=== PATIENT | male | born 1950 | race Caucasian/White ===

== ENCOUNTER 2016-06-29 11:23 | Observation (INO) | payer OTHER ==
[2016-06-29] MEDS ORDERED: NS 0.9% 1000 ML* 1,000 ML IV ONE (11:25)
[2016-06-29] MEDS ORDERED: Diltiazem TAB* 30 MG PO ONE (11:44)
[2016-06-29 11:48] LABS: Hematocrit 47 % (42-52); Hemoglobin 15.3 g/dl (14.0-18.0); Mean Corpuscular HGB Conc 33 g/dl (31-36); Mean Corpuscular Hemoglobin 29 pg (27-31); Mean Corpuscular Volume 89 fL (80-94); Mean Platelet Volume 10 um3 (7.4-10.4); Red Blood Count 5.24 10^6/ul (4.0-5.4); Red Cell Distribution Width 14 % (10.5-15); White Blood Count 6.4 10^3/ul (3.5-10.8)
--- NOTE | 2016-06-29 11:54 | RAD ---
HISTORY: Chest pain, tachycardia COMPARISONS: January 28, 2016 VIEWS:1: Single frontal portable view of the chest at 11:40 AM FINDINGS: LINES AND TUBES: None. CARDIOMEDIASTINAL SILHOUETTE: The cardiomediastinal silhouette is normal for portable technique. PLEURA: The costophrenic angles are sharp. No pleural abnormalities are noted. LUNG PARENCHYMA: The lungs are clear. ABDOMEN: The upper abdomen is clear. There is no subphrenic gas. BONES AND SOFT TISSUES: No bone or soft tissue abnormalities are noted. Spinal stimulator leads are noted. IMPRESSION: NO ACTIVE CARDIOPULMONARY DISEASE.
[2016-06-29 12:12] LABS: Albumin 4.1 g/dL (3.2-5.2); BUN/Creatinine Ratio 10.5 (8-20); C Reactive Protein 1.08 mg/L (< 5.00); Calcium 9.3 mg/dL (8.6-10.3); EGFR African American 82.7 (>60); EGFR Non-African American 64.3 (>60); Globulin 2.7 g/dL (2-4); Magnesium 1.4 mg/dL (1.9-2.7); Potassium 3.7 mmol/L (3.5-5.0); Total Bilirubin 0.6 mg/dL (0.2-1.0); Total Protein 6.8 g/dL (6.4-8.9)
[2016-06-29 12:13] LABS: Troponin I 0.01 ng/mL (<0.04)
[2016-06-29 12:25] LABS: TSH (Thyroid Stimulating Horm) 3.45 mcIU/mL (0.34-5.60)
[2016-06-29] MEDS ORDERED: Magnesium Sulfate IV* 3 GM in NS 0.9% 100 ML* 100 ML IVPB ONE (12:31)
[2016-06-29] MEDS ORDERED: Dextrose 50% Syringe 50 ML* 25 GM/50 ML SYRINGE IV PUSH PRN (13:04)
[2016-06-29] MEDS ORDERED: Potassium Chlor TAB* 20 MEQ TAB.ER PO ONE (13:04)
[2016-06-29] MEDS ORDERED: Acetaminophen TAB* 325 MG PO PRN (13:04)
[2016-06-29 13:27] LABS: Urine Bacteria Absent (Absent); Urine Bilirubin Negative (Negative); Urine Glucose Negative (Negative); Urine Nitrite Negative (Negative)
--- NOTE | 2016-06-29 13:43 | ED ---
Keny Zhu Karl, scribed for Raymond Negrete MD on 06/29/16 at 1129 . HPI Cardiac - HPI Summary HPI Summary: Pt is a 65 y/o male BIBA that presents to the ED c/o SOB, CP, and right arm pain. Pt reported that he was [facility] and SOB when they found that he was in SVT after an EKG. Pt's doctors at the [facility] referred him to the ED. - History of Current Complaint Chief Complaint: EDDysrhythmPalp Stated Complaint: CHEST PAIN Time Seen by Provider: 06/29/16 11:24 Hx Obtained From: Patient Onset/Duration: Started Hours Ago, Atraumatic, Still Present Timing: Constant Initial Severity: Mild Current Severity: Mild Chest Pain Location: Right Anterior Chest Pain Radiates To:: Arm - right - Allergy/Home Medications Allergies/Adverse Reactions: Allergies Allergy/AdvReac Type Severity Reaction Status Date / Time No Known Allergies Allergy Verified 02/10/16 11:39 Home Medications: Home Medications Cetirizine* [ZyrTEC*] 10 mg PO DAILY PRN 06/29/16 [History Confirmed 06/29/16] Fluticasone NASAL SPRAY 50MCG* [Flonase NASAL SPRAY 50MCG*] 1 spray BOTH NARES BID 06/29/16 [History Confirmed 06/29/16] Gabapentin CAP(*) [Neurontin 300 CAP(*)] 300 mg PO QAM 06/29/16 [History Confirmed 06/29/16] Gabapentin CAP(*) [Neurontin 300 CAP(*)] 600 mg PO QPM 06/29/16 [History Confirmed 06/29/16] Levothyroxine TAB* [Synthroid TAB*] 100 mcg PO QAM 06/29/16 [History Confirmed 06/29/16] Nortriptyline CAP* [Pamelor CAP*] 20 mg PO QPM 06/29/16 [History Confirmed 06/29] Rosuvastatin (NF) [Crestor (NF)] 40 mg PO DAILY 06/29/16 [History Confirmed 11/08] PMH/Surg Hx/FS Hx/Imm Hx Endocrine/Hematology History: Reports: Hx Diabetes Cardiovascular History: Reports: Hx Hypercholesterolemia, Hx Rheumatic Fever - A CHILD Denies: Hx Hypertension Respiratory History: Denies: Hx Asthma GI History: Reports: Hx Gastroesophageal Reflux Disease - ON MEDS, Hx Irritable Bowel - MANY YEARS AGO Denies: Other GI Disorders History: Denies: Other Problems/Disorders Musculoskeletal History: Reports: Hx Arthritis, Hx Back Problems, Hx Tendonitis - ARMS AND HANDS, Other Musculoskeletal History - Has dorsal column stimulator Sensory History: Reports: Hx Contacts or Glasses - to read only, Hx Hearing Aid Denies: Hx Cataracts Opthamlomology History: Reports: Hx Contacts or Glasses - to read only Denies: Hx Cataracts Neurological History: Denies: Other Neuro Impairments/Disorders - Cancer History Hx Chemotherapy: No - Surgical History Surgery Procedure, Year, and Place: Laminectomy 1990 [facility]. Spinal Fusion 1993 [facility] Lumbar Spine. SPinal Fusion 1996 [place], [place] Cervical Spine. Dorsal Column Stimulator inserted March 2013. Dorsal Column Stimulator removed April 2013. 2nd dorsal column stimulator inserted 2013 Hx Anesthesia Reactions: No Infectious Disease History: Denies: Hx Clostridium Difficile, Hx Hepatitis, Hx Human Immunodeficiency Virus (HIV), Hx of Known/Suspected MRSA, Hx Shingles, Hx Tuberculosis, Hx Known/ Suspected VRE - Family History Known Family History: Positive: Other - No malignant hyperthermia or anesthesia reaction - Social History Alcohol Use: None Substance Use Type: Reports: None Substance Use Comment - Amount & Last Used: Tramadol Smoking Status (MU): Former Smoker Type: Cigarettes Amount Used/How Often: 2PPD 10 YRS Have You Smoked in the Last Year: No Review of Systems Constitutional: Negative Eyes: Negative ENT: Negative Positive: Palpitations - SVT, Chest Pain Positive: Shortness Of Breath Gastrointestinal: Negative Genitourinary: Negative Musculoskeletal: Other - right arm pain Skin: Negative Neurological: Negative Psychological: Normal All Other Systems Reviewed And Are Negative: Yes Physical Exam Triage Information Reviewed: Yes Vital Signs On Initial Exam: Initial Vital Signs Temp 97.4 F 06/29/16 11:25 Pulse 109 06/29/16 11:25 Resp 25 06/29/16 11:25 BP 140/89 06/29/16 11:25 Pulse Ox 98 06/29/16 11:25 Vital Signs Reviewed: Yes Appearance: Positive: Well-Appearing, No Pain Distress Skin: Positive: Warm, Skin Color Reflects Adequate Perfusion, Dry Head/Face: Positive: Normal Head/Face Inspection Eyes: Positive: EOMI, DANIELA ENT: Positive: Normal ENT inspection Neck: Positive: Supple, Nontender Respiratory/Lung Sounds: Positive: Clear to Auscultation, Breath Sounds Present Cardiovascular: Positive: Tachycardia Abdomen Description: Positive: Nontender, Soft Bowel Sounds: Positive: Present Musculoskeletal: Positive: Normal, Strength/ROM Intact Neurological: Positive: Normal, Sensory/Motor Intact, Alert, Oriented to Person Place, Time Psychiatric: Positive: Affect/Mood Appropriate Diagnostics - Vital Signs Vital Signs Temp Pulse Resp BP Pulse Ox 06/29/16 12:30 112 18 101/70 97 06/29/16 12:01 112 19 97 06/29/16 12:00 107/68 06/29/16 11:55 115 22 97 06/29/16 11:30 112 21 120/78 99 06/29/16 11:28 111 24 99 06/29/16 11:27 124/82 06/29/16 11:25 97.4 F 109 25 140/89 98 - Laboratory Lab Results: Lab Results 06/29/16 06/29/16 06/29/16 Range/Units 11:25 11:25 11:25 WBC 6.4 (3.5-10.8) 10^3/ul RBC 5.24 (4.0-5.4) 10^6/ul Hgb 15.3 (14.0-18.0) g/dl Hct 47 (42-52) % MCV 89 (80-94) fL MCH 29 (27-31) pg MCHC 33 (31-36) g/dl RDW 14 (10.5-15) % Plt Count 178 (150-450) 10^3/ul MPV 10 (7.4-10.4) um3 Neut % (Auto) 76.6 (38-83) % Lymph % (Auto) 12.9 L (25-47) % [place] % (Auto) 6.5 (1-9) % Eos % (Auto) 3.3 (0-6) % Baso % (Auto) 0.7 (0-2) % Absolute Neuts (auto) 4.9 (1.5-7.7) 10^3/ul Absolute Lymphs (auto) 0.8 L (1.0-4.8) 10^3/ul Absolute Monos (auto) 0.4 (0-0.8) 10^3/ul Absolute Eos (auto) 0.2 (0-0.6) 10^3/ul Absolute Basos (auto) 0 (0-0.2) 10^3/ul Absolute Nucleated RBC 0 10^3/ul Nucleated RBC % 0.1 INR (Anticoag Therapy) 0.93 (0.89-1.11) APTT 27.5 (26.0-36.3) seconds D-Dimer, Quantitative < 200 (Less Than 230) ng/mL Sodium 133 (133-145) mmol/L Potassium 3.7 (3.5-5.0) mmol/L Chloride 101 (101-111) mmol/L Carbon Dioxide 23 (22-32) mmol/L Anion Gap 9 (2-11) mmol/L BUN 12 (6-24) mg/dL Creatinine 1.14 (0.67-1.17) mg/dL Est GFR ( Amer) 82.7 (>60) Est GFR (Non-Af Amer) 64.3 (>60) BUN/Creatinine Ratio 10.5 (8-20) Glucose 206 H (70-100) mg/dL Lactic Acid (0.5-2.0) mmol/L Calcium 9.3 (8.6-10.3) mg/dL Magnesium 1.4 L (1.9-2.7) mg/dL Total Bilirubin 0.60 (0.2-1.0) mg/dL AST 29 (13-39) U/L ALT 40 (7-52) U/L Alkaline Phosphatase 70 (34-104) U/L Total Creatine Kinase 197 (10-223) U/L CK-MB (CK-2) 4.1 (0.6-6.3) ng/mL Troponin I 0.01 (<0.04) ng/mL C-Reactive Protein 1.08 (< 5.00) mg/L B-Natriuretic Peptide ( - 100) pg/mL Total Protein 6.8 (6.4-8.9) g/dL Albumin 4.1 (3.2-5.2) g/dL Globulin 2.7 (2-4) g/dL Albumin/Globulin Ratio 1.5 (1-3) Lipase 29 (11.0-82.0) U/L TSH 3.45 (0.34-5.60) mcIU/mL 06/29/16 06/29/16 Range/Units 11:25 11:25 WBC (3.5-10.8) 10^3/ul RBC (4.0-5.4) 10^6/ul Hgb (14.0-18.0) g/dl Hct (42-52) % MCV (80-94) fL MCH (27-31) pg MCHC (31-36) g/dl RDW (10.5-15) % Plt Count (150-450) 10^3/ul MPV (7.4-10.4) um3 Neut % (Auto) (38-83) % Lymph % (Auto) (25-47) % [place] % (Auto) (1-9) % Eos % (Auto) (0-6) % Baso % (Auto) (0-2) % Absolute Neuts (auto) (1.5-7.7) 10^3/ul Absolute Lymphs (auto) (1.0-4.8) 10^3/ul Absolute Monos (auto) (0-0.8) 10^3/ul Absolute Eos (auto) (0-0.6) 10^3/ul Absolute Basos (auto) (0-0.2) 10^3/ul Absolute Nucleated RBC 10^3/ul Nucleated RBC % INR (Anticoag Therapy) (0.89-1.11) APTT (26.0-36.3) seconds D-Dimer, Quantitative (Less Than 230) ng/mL Sodium (133-145) mmol/L Potassium (3.5-5.0) mmol/L Chloride (101-111) mmol/L Carbon Dioxide (22-32) mmol/L Anion Gap (2-11) mmol/L BUN (6-24) mg/dL Creatinine (0.67-1.17) mg/dL Est GFR ( Amer) (>60) Est GFR (Non-Af Amer) (>60) BUN/Creatinine Ratio (8-20) Glucose (70-100) mg/dL Lactic Acid 1.9 (0.5-2.0) mmol/L Calcium (8.6-10.3) mg/dL Magnesium (1.9-2.7) mg/dL Total Bilirubin (0.2-1.0) mg/dL AST (13-39) U/L ALT (7-52) U/L Alkaline Phosphatase (34-104) U/L Total Creatine Kinase (10-223) U/L CK-MB (CK-2) (0.6-6.3) ng/mL Troponin I (<0.04) ng/mL C-Reactive Protein (< 5.00) mg/L B-Natriuretic Peptide 13 ( - 100) pg/mL Total Protein (6.4-8.9) g/dL Albumin (3.2-5.2) g/dL Globulin (2-4) g/dL Albumin/Globulin Ratio (1-3) Lipase (11.0-82.0) U/L TSH (0.34-5.60) mcIU/mL Result Diagrams: 06/29/16 11:25 06/29/16 11:25 Lab Statement: Any lab studies that have been ordered have been reviewed, and results considered in the medical decision making process. - Radiology CXR Xray Interpretation: No Acute Changes Radiology Interpretation Completed By: Radiologist - IMPRESSION: NO ACTIVE CARDIOPULMONARY DISEASE. - EKG 11:17 Cardiac Rate: Tachycardia EKG Rhythm: Sinus Tachycardia Ectopy: None EKG Interpretation: Non-specific T-wave abnormalities in inferior leads Disposition - Course Assessment/Plan: DISCUSSED WITH DR RUBIO. ADMIT HOSPITALIST STABLE. - Diagnoses Provider Diagnoses: SVT,CHEST PAIN - Physician Notifications Discussed Care Of Patient With: Dr. Rubio (Cardiology) at 11:27. Dr. Lemons (Hospitalist) at 11:30 Discharge - Discharge Plan Condition: Stable Disposition: ADMITTED TO [facility] documentation as recorded by the Keny germain Karl accurately reflects the service I personally performed and the decisions made by me, Raymond Negrete MD.
[2016-06-29] MEDS ORDERED: Heparin VIAL(*) 5000 UNITS/ML VIAL (FIVE THOUSAND) SUBCUT SCH (14:00)
[2016-06-29] MEDS: Magnesium Oxide TAB* 400 MG PO SCH (14:29)
[2016-06-29] MEDS: Insulin LISPRO* 1 UNITS UNIT SUBCUT SCH (17:04)
--- NOTE | 2016-06-29 17:21 | ECHO ---
Patient: LEXI FIGUEROA [facility] Rec#: [id number] : 1950 Date: 06/29/2016 Age: 65y Height: 175 cm / 68.9 in Weight: 124 kg / 273.3 lbs Sex: M BSA: 2.36 Room#: 431 Admit Date#: 06/29/2016 Type: Inpatient Referring: Giovanni Griffin NP Reading: Brooks Miguel MD Agile Developer: Anson Gutierrez RDCS Transthoracic Echocardiogram Indication: SVT, Chest pain BP: 112/68 HR: 79 Rhythm: NSR Findings History: DM, rheumatic fever Technical Comments: The study quality is fair. The study is technically limited due to patient body habitus. Left Ventricle: The left ventricular chamber size is normal. Mild concentric left ventricular hypertrophy is observed. Global left ventricular wall motion and contractility are within normal limits. There is normal left ventricular systolic function. The estimated ejection fraction is 50-55%. Visually estimated LVEF is 55%. Abnormal left ventricular diastolic filling is observed, consistent with impaired relaxation. Left Atrium: The left atrial chamber size is normal. Right Ventricle: The right ventricular cavity size is normal. The right ventricular global systolic function is normal. Right Atrium: The right atrial cavity size is normal. Aortic Valve: The aortic valve is trileaflet. Mild aortic leaflet calcification is visualized. There is no evidence of aortic regurgitation. There is mild aortic stenosis. Mitral Valve: There is mitral annular calcification. There is no evidence of mitral regurgitation. There is no evidence of mitral stenosis. Tricuspid Valve: The tricuspid valve appears normal in structure and function. Pulmonic Valve: The pulmonic valve appears normal. There is no evidence of pulmonic regurgitation. There is no pulmonic stenosis. Pericardium: There is no pericardial effusion. A pericardial fat pad is visualized. No pleural effusion is present. Aorta: There is no dilatation of the ascending aorta. There is no dilatation of the aortic arch. There is no dilation of the aortic root. Pulmonary Artery: The main pulmonary artery is not well visualized. Venous: The inferior vena cava appears normal in size. There is a greater than 50% respiratory change in the inferior vena cava dimension. Conclusions Mild concentric left ventricular hypertrophy is observed. The estimated ejection fraction is 50-55%. Visually estimated LVEF is 55%. Global left ventricular wall motion and contractility are within normal limits. There is mild aortic stenosis. No reports of prior studies offered for comparison. Measurements Name Value Normal Range RVIDd (AP) 2D 2.1 cm (0.9 - 2.6) RVDdMajor (2D) 3.7 cm (2.2 - 4.4) RAd ISD 4CH 5.2 cm (3.4 - 4.9) RA (A4C)W 4.3 cm (2.9 - 4.6) IVSd (2D) 1.3 cm (0.6 - 1) LVPWd (2D) 1.6 cm (0.6 - 1) LVIDd (2D) 4.5 cm (3.6 - 5.4) LVIDs (2D) 3.9 cm - Aortic Annulus 2.2 cm (1.4 - 2.6) Ao root diameter (2D) 3.3 cm (2.1 - 3.5) Ascending Ao 3.7 cm (2.1 - 3.4) Aortic arch 3.5 cm (1.8 - 3.4) LA dimension (AP) 2D 4 cm (2.3 - 3.8) LAd ISD 4CH 6.5 cm (2.9 - 5.3) LA ISD 4CH W 4.4 cm (2.5 - 4.5) Name Value Normal Range LA ESV SP 4CH (A/L) 41 ml - LA ESV SP 2CH (A/L) 41 ml - LA ESV BP (A/L) 45 ml - LA ESV BP (A/L) index 19.28 ml/m2 - LA ESV SP 4CH (MOD) 36 ml - LA ESV SP 2CH (MOD) 39 ml - Name Value Normal Range MV E-wave Vmax 0.52 m/sec - MV deceleration time 234 msec - MV A-wave Vmax 0.76 m/sec - MV E:A ratio 0.68 ratio - LV septal e' Vmax 0.05 m/sec - LV lateral e' Vmax 0.07 m/sec - LV E:e' septal ratio 10.4 ratio - LV E:e' lateral ratio 7.43 ratio - Name Value Normal Range AV Vmax 1.9 m/sec - LVOT Vmax 0.8 m/sec - Name Value Normal Range IVC diameter 1 cm - Name Value Normal Range PV Vmax 0.6 m/sec -
[2016-06-29] MEDS: Enoxaparin(*) 150 MG/ML 1 ML SYRINGE SUBCUT SCH (17:28)
[2016-06-29] MEDS: Diltiazem TAB* 30 MG PO SCH ×2 (17:33→17:36)
[2016-06-29] MEDS ORDERED: Baclofen TAB* 20 MG PO SCH (18:00)
[2016-06-29] MEDS ORDERED: Gabapentin CAP(*) 300 MG PO SCH (18:00)
[2016-06-29] MEDS: Fluticasone NASAL SPRAY 50MCG* 16 gm SPRAY BTL BOTH NARES SCH (20:27)
--- NOTE | 2016-06-29 20:54 | HP ---
HISTORY AND PHYSICAL: ADDENDUM: Mr. Britt is a 65-year-old male with a history of chronic pain and hypertension, who pr esented to the hospital with SVT with a heart rate close to 200 systolically. He received one dose of adenosine in the ambulance that was not successful, but [facility] the patient's SVT. Currently, he is in sinus tachycard ia. His magnesium was noted to be 1.4. The patient also complained of chest pain and he is going to be admitted to the hospital for the above-mentioned. For further details of the patient's presenta tion and plan, please see history and physical dictated by Giovanni Griffin NP, on 06/29/16 with which I agree. [id number]/[facility] #: [id number]
[2016-06-29] MEDS ORDERED: Nortriptyline CAP* 10 MG PO SCH (21:00)
--- NOTE | 2016-06-29 21:11 | HP ---
HISTORY AND PHYSICAL: DATE OF ADMISSION: 06/29/16 PRIMARY CARE PROVIDER: Danielle Stanley NP ATTENDING PHYSICIAN: Dr. Vero Linder* (report being dictated by Giovanni Griffin NP) CHIEF COMPLAINT: 1. Chest pain. 2. SVTs. HISTORY OF PRESENT ILLNESS: Mr. Britt is a 65-year-old male patient who has a history of smoking when he was 29 years old, has a history of hypertension, BPH, diabetes, chronic back pain, hyperlipidemia, hypothyroidism, and GERD. He comes in today stating that around 9 o'clock today after getting out of shower and exerting himself. He had some chest pressure across the front of his chest that radiated down to the right arm. He did have some associated diaphoresis and he felt winded and he felt nauseated. The symptoms persisted. He states few weeks ago, he had similar symptoms, lasted 30 minutes, and then they went away. He states he thinks they happened with exertion as well few weeks ago. He does state that the patient states that he had an appointment with his primary today already scheduled for lab work, so he decided to go there. When he was in the office there, the symptoms were getting worse. He was having palpitations. He felt like his heart was racing. He told his staff there. They immediately attended to him. He got an EKG, which shows he appeared to be in SVT with a rate of 207. Similar episodes in the past, but never had any etiology or pathology found. He said he had a workup with a postal mail carrier 3 years ago and said everything according to the patient looked fine. He denies having any recent cough, fever, or chills. No recent change in medications. Denies having any nausea. Denies having any vomiting. He denies having any abdominal discomfort. He does state that the symptoms just were not getting better and with a new finding of SVT, 911 was called and he was sent in to the hospital. Because of his risk factors, we were asked to evaluate. He was given adenosine and he did break to a sinus tachycardia with a rate of 110. PHYSICAL EXAMINATION GENERAL: Mr. Britt is a 65-year-old male patient, appears well-nourished, well- developed, he does not appear in any acute distress. HEENT: Head atraumatic, normocephalic. Eyes: EOMs intact. Sclerae anicteric and not pale. Throat: Oral mucosa appears to be moist. No oropharyngeal erythema. NECK: Supple. LUNGS: Clear to auscultation bilaterally. No wheezes, rales, or rhonchi. HEART: Sounds S1, S2. He is tachycardic with a rate of 110. No murmurs, rubs , or gallops. ABDOMEN: Soft, flat, nontender. Bowel sounds present. EXTREMITIES: Pulses 2+ throughout. He is able to move all 4 extremities with 5 /5 strength. SKIN: Grossly intact. NEUROLOGIC: The patient is awake, alert, and oriented x3. Tongue midline. [place] [employer] were equal. No gross focal deficits. LABORATORY DATA: Labs today revealed a WBC of 6.4, RBC of 5.24, hemoglobin 15.3, hematocrit of 47, platelet count of 178. The INR was 0.93, PTT of 27.5, D -dimer less than 200. Sodium 133, potassium 3.7, chloride 101, bicarb 23, BUN 12, creatinine 1.14, glucose 216, lactic 1.9, calcium 9.3, mag 1.4, total bili 0.6, AST 29, ALT 40, alk phos 70, CK 197, CK-MB 4.1, troponin 0.01, CRP 1.08, BNP 13, TSH 3.45, lipase of 29. He did have a chest x-ray obtained today as well, which revealed no active cardiopulmonary disease. Again, EKG done at Danielle Valderramarich's office, which showed a SVT, rate of [address] depression. He had a repeat EKG here in the hospital, which did show a sinus tachycardia with a rate of [address] elevations or T-wave inversions were noted at this point. Old medical records were reviewed. ASSESSMENT AND PLAN: Mr. Britt is a 65-year-old male patient coming into the ER today with complaints of chest pressure with associated shortness of breath and nausea and diaphoresis in evaluation as his primary noted in supraventricular tachycardia, it broke, his symptoms have resolved. He will be admitted under outpatient status: 1. Supraventricular tachycardia. Again, etiology is unclear. His mag is low. We are going to get that up to 2. His K was 3.7. We will get that up to 4. We will repeat the mag in the morning. We will get an echo and a stress test, placed him on telemetry. We will start him on diltiazem. If the patient's LV function is stable, we could certainly continue with the diltiazem long-term, but may also want to consider beta-pankaj if there is any chance of coronary artery disease. For the time being, we will stick with the diltiazem and may consider switching him to metoprolol. The risk of the metoprolol may mask hypoglycemic event, so I did touch base with the postal mail carrier and they recommended going ahead and continue with the diltiazem for now and then determining if we should switch him over to a beta-pankaj for the time being, we will follow. 2. Chest pain. His rate is better controlled now. He is not having any more symptoms. We will continue the aspirin for now. We will get a stress test, cycle his troponins, place him on telemetry and continue to follow. I am getting an echo. If there is any abnormal findings on the lab test, diagnostic test, we will get Cardiology consult. 3. Hypertension. Continue meds as prescribed. 4. Diabetes. He will be on lispro sliding scale. 5. Benign prostatic hypertrophy. Continue Flomax. 6. Hyperlipidemia. Check a lipid panel in the morning. Continue meds as prescribed. 7. Hypothyroidism. Continue Synthroid. 8. Gastroesophageal reflux disease. Continue PPI therapy. 9. Chronic back pain. Continue meds as prescribed. 10. DVT prophylaxis. He has high risk. He will be placed on heparin subcu. 11. Code status. He is a full code. 12. Fluid, electrolyte, nutrition. He can have a heart healthy diet, then he will be n.p.o. after midnight for the test in the morning. TIME SPENT: Time spent on the admission was approximately 60 minutes, greater than half the time was spent [id number] with the patient obtaining my history and physical; other half the time was spent going over the plan of care with the patient and implementing the plan of care. I did discuss the plan of care with my attending; Dr. Linder; she is in agreement. GIOVANNI GRIFFIN NP ADDENDUM TO HISTORY AND PHYSICAL: ADDENDUM: Mr. Britt is a 65-year-old male with a history of chronic pain and hypertension, who presented to the hospital with SVT with a heart rate close to 200 systolically. He received one dose of adenosine in the ambulance that was not successful, but the dose of 12 mg of adenosine in the emergency department was successful in breaking the patient's SVT. Currently, he is in sinus tachycardia. His magnesium was noted to be 1.4. The patient also complained of chest pain and he is going to be admitted to the hospital for the above- mentioned. For further details of the patient's presentation and plan, please see history and physical dictated by Giovanni Griffin NP, on 06/29/16 with which I agree. Vero Linder MD CC: Danielle Stanley NP* [id number] #: [id number] #: [id number]
[2016-06-30] MEDS: Diltiazem TAB* 30 MG PO SCH ×3 (01:16→12:03)
--- NOTE | 2016-06-30 01:26 | CONS ---
CARDIOLOGY CONSULTATION: DATE OF CONSULT: 06/29/16. PATIENT OF: [facility] here in [place], as well as my office. REASON FOR EVALUATION: SVT, abnormal troponin. HISTORY OF PRESENT ILLNESS: This is a very pleasant 65-year-old gentleman with a history of hypertension, diabetes, hyperlipidemia, who has a history of episodes of racing heartbeats associated with chest tightness, shortness of breath, and lightheadedness. He said these have been going on for maybe 10 years or more, occurring 1 to 3 times a year, usually when overexerting. He said they usually last 10 or 15 minutes and go away with resting. He said, however, this year already he has had two; one a week or two ago, which last for 10 or 15 minutes, and then one this morning that started at 9:30. He had some shortness of breath, tightness in his chest, and achiness in his right arm. He felt his heart is going fast and had some lightheadedness. It is started at 9:30 and he went to [facility] at 10:30, and apparently was found to be in SVT at about 200, and ambulance was called. He was given adenosine 6 mg without conversion and then adenosine 12 mg with conversion. According to the report of the ER doctors, some ST depressions when tachycardic. He was admitted and started on Cardizem; however, routine screening of his troponins revealed an elevation of the second troponin. He is limited by back discomfort and walks with a cane. He has had no exertional chest pain at low levels of exertion that he normally exerts himself. He has had no syncope. No strokes or mini strokes. No rheumatic fever or murmurs. No heart failure. No heart attacks. He denies alcohol use. REVIEW OF SYSTEMS: Review of systems x10 was negative, except as noted above. PAST MEDICAL HISTORY: Includes hypertension, diabetes, hyperlipidemia, tobacco use between 20 and 30. He denies emphysema, obesity. Palpitations dating back about 10 years. He saw a therapeutic radiologist about 10 or 15 years ago and they could not find an explanation for his paroxysmal symptoms. PAST SURGICAL HISTORY: Include three back surgeries. He had a stimulator placed and that got infected and had to be removed. ALLERGIES: He denies any drug allergies. He does have seasonal allergies. MEDICATIONS: His medications include: 1. Pamelor 20 mEq at bedtime. 2. Neurontin 300 mg at a.m. and 600 mg at p.m. 3. Celebrex 200 mg q.a.m. 4. Flexeril 10 mg q.a.m. 5. Baclofen 20 mg q.p.m. 6. Flomax 0.4 mg daily. 7. Mylicon 40 mg t.i.d. 8. Metformin 1000 mg b.i.d. 9. Rosuvastatin 40 mg a day. 10. Omeprazole 40 mg a day. 11. Lisinopril/hydrochlorothiazide 1 tablet a day. 12. Levothyroxine 100 mcg a day. 13. Cholecalciferol 2000 units b.i.d. 14. Cetirizine 10 mg a day. 15. Aspirin 81 mg a day. SOCIAL HISTORY: He is , has one son. He has a brother with AFib and two sisters of cancer. His parents in their 80s. He drinks 7 to 8 cups of caffeinated coffee a day. Denies alcohol use. He retired in 1989 because of back spasms. 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 PHYSICAL EXAMINATION: He is a well-developed, obese gentleman, in no apparent distress. Blood pressure 103/59, pulse of 79. No significant JVD. Carotids are 2+ without bruits. No cervical adenopathy. No thyromegaly. Extraocular movements are intact. Sclerae anicteric. Cardiac Exam: S1 and S2, with a 2/6 systolic ejection murmur at the base and a split S2. Chest was clear. No CVAT. Abdomen: Obese. Bowel sounds present. Nontender. Difficult to exam. No clear hepatosplenomegaly. Femoral pulses intact, without bruits. Distal pulses intact with trace edema. Motor strength 5/5 in the upper extremities. He was reluctant to move his lower extremity due to pain. Deep tendon reflexes are not able to be elicited in the lower extremities, 2/4 in the upper extremities. DIAGNOSTIC STUDIES/LAB DATA: Include a normal CBC. Potassium low normal at 3.7 , glucose elevated at 206, BUN of 12, creatinine of 1.14, magnesium low at 1.14. Troponin of 0.01 initially and then 0.08 subsequent, and 0.24 on 1559. BNP normal at 13. TSH normal. EKG from 06/29/16 at 4:50 p.m. revealed sinus rhythm, with no acute changes. He did have an echocardiogram performed today, which revealed mild ventricular LVH, EF 50% to 55%, visually estimated at 55%, abnormal diastolic function, mild aortic stenosis, no prior studies. Chest x-ray: No active cardiopulmonary disease. IMPRESSION: My impression is that Mr. Britt had an episode of SVT and has elevation of his troponins. It sounds as though these episodes have been longstanding and usually resolve after 10 to 15 minutes of resting; however, today's episode was longer and associated with a troponin elevation. I explained to him the importance of being more aggressive about treating the SVT and further evaluation for heart disease. For the time being, I recommended the followin. I agree with adding Cardizem to his regimen. Hopefully, this will control his blood pressure and make it less likely as SVT. 2. We would maintain his potassium over 4. 3. We will replace his magnesium as you are doing. 4. I strongly advised to decrease his caffeine intake. 5. We talked about possible interventions including Valsalva, which has not worked in the past, as well as using a spoon or toothbrush to try to cautionsly induce a gag if SVT recurs. 6. If he continues to have episodes, I would suggest EP evaluation to see if he is a candidate for ablation. I would also suggest replacing his hydrochlorothiazide and possibly his lisinopril with Cardizem as needed to control his blood pressure. [id number]/[facility] #: [id number] ADITYA
[2016-06-30 05:28] LABS: Hematocrit 43 % (42-52); Hemoglobin 14.2 g/dl (14.0-18.0); Mean Corpuscular HGB Conc 33 g/dl (31-36); Mean Corpuscular Hemoglobin 30 pg (27-31); Mean Corpuscular Volume 88 fL (80-94); Mean Platelet Volume 10 um3 (7.4-10.4); Red Blood Count 4.82 10^6/ul (4.0-5.4); Red Cell Distribution Width 14 % (10.5-15)
[2016-06-30] MEDS: Enoxaparin(*) 150 MG/ML 1 ML SYRINGE SUBCUT SCH (05:42)
[2016-06-30 05:48] LABS: BUN/Creatinine Ratio 13.6 (8-20); Calcium 9.3 mg/dL (8.6-10.3); EGFR African American 111.4 (>60); EGFR Non-African American 86.6 (>60); HDL Cholesterol 25.5 mg/dL
[2016-06-30 05:57] LABS: Troponin I 0.22 ng/mL (<0.04)
[2016-06-30] MEDS ORDERED: Levothyroxine TAB* 100 MCG TAB PO SCH (06:00)
[2016-06-30] MEDS: Insulin LISPRO* 1 UNITS UNIT SUBCUT SCH ×2 (08:34→12:03)
[2016-06-30] MEDS ORDERED: Lisinopril TAB* 10 MG PO SCH (09:00)
[2016-06-30] MEDS ORDERED: Omeprazole CAP* 20 MG PO SCH (09:00)
[2016-06-30] MEDS ORDERED: Aspirin EC Low Dose* 81 MG TAB.EC PO SCH (09:00)
[2016-06-30] MEDS ORDERED: Gabapentin CAP(*) 300 MG PO SCH (09:00)
[2016-06-30] MEDS ORDERED: Cyclobenzaprine TAB* 10 MG PO SCH (09:00)
[2016-06-30] MEDS ORDERED: Tamsulosin CAP* 0.4 MG PO SCH (09:00)
[2016-06-30] MEDS ORDERED: Atorvastatin* 80 MG TAB PO SCH (09:00)
[2016-06-30] MEDS ORDERED: Baclofen TAB* 10 MG PO SCH (09:00)
[2016-06-30] MEDS ORDERED: Aspirin Low Dose CHEW TAB* 81 MG PO SCH (09:00)
[2016-06-30] MEDS: Fluticasone NASAL SPRAY 50MCG* 16 gm SPRAY BTL BOTH NARES SCH (09:35)
[2016-06-30] MEDS: Magnesium Oxide TAB* 400 MG PO SCH (09:35)
[2016-06-30 10:48] VITALS: BP 150/79
--- NOTE | 2016-07-01 07:13 | DS ---
DISCHARGE SUMMARY: DATE OF ADMISSION: 06/29/16 DATE OF DISCHARGE: 06/30/16 PRIMARY CARE PROVIDER: SPENCER Courtney at the [facility]. PRIMARY DIAGNOSIS: Supraventricular tachycardia. SECONDARY DIAGNOSES: Include: 1. Elevated troponin. 2. History of hypertension. 3. Diabetes. 4. Benign prostatic hyperplasia. 5. Hyperlipidemia. 6. Hypothyroidism. 7. Gastroesophageal reflux disease. 8. Chronic back pain. MEDICATIONS ON DISCHARGE: 1. Nortriptyline 20 mg in the evening. 2. Gabapentin 300 mg in the morning and 300 mg at night. 3. Celebrex 200 mg in the morning. 4. Flexeril 10 mg in the morning. 5. Baclofen 20 mg in the evening. 6. Flomax 0.4 mg daily. 7. Simethicone chew 40 mg 2 times a day as needed. 8. Baclofen 10 mg in the morning. 9. Metformin 1000 mg twice daily. 10. Crestor 40 mg daily. 11. Prilosec 40 mg daily. 12. Synthroid 100 mcg daily. 13. Fluticasone nasal spray 1 spray both nostril daily. 14. Vitamin D 2000 units twice daily. 15. Zyrtec 10 mg daily as needed. 16. Aspirin 81 mg daily. 17. Lisinopril 20 mg daily. 18. Diltiazem CD 120 mg daily. Please note discontinuation of hydrochlorothiazide and initiation of diltiazem. PERTINENT LABORATORY DATA: Troponin I peaked at 0.34, decreased to 0.15 prior to discharge. TSH 3.45. Total cholesterol 96, LDL 47, HDL 25, and triglycerides 118. D-dimer less than 200. No evidence of infection. IMAGING PERFORMED DURING HOSPITAL STAY: Transthoracic echocardiogram - impression: Mild concentric left ventricular hypertrophy. Estimated LVEF is 50 % to 55%. Global left ventricular wall motion and contractility within normal limits. There is mild aortic stenosis. HISTORY OF PRESENT ILLNESS AND HOSPITAL COURSE: This is a 65-year-old gentleman with past medical history as outlined in the history of present illness on the day of admission including hypertension, diabetes, and some history of palpitations in the past that has not been characterized on the day of admission developed chest pressure along with palpitations presented to the hospital along with SVT and the heart rates up to 200. Received adenosine en route with EMS without rate control; however, second administration of 12 mg in the emergency room cardioverted to normal sinus rhythm, regular with a controlled rhythm. He was seen in conjunction with the Cardiology. He is started on Cardizem 30 mg every 6 hours with adequate rate control, heart rates in the 60s to 70s after presenting to telemetry. He felt much improved on the day of discharge without complaints. No complications during this patient's hospital stay. At followup please; 1. Consider increasing diltiazem dose if blood pressure and heart rate allow. 2. Can consider outpatient nuclear stress test based on elevated troponins. There is no regional wall motion abnormalities or EKG changes, status post supraventricular tachycardia. Elevated troponins were thought to be in the setting of demand. Testing is at your preference. 3. Tighter control of diabetes. Reasons to return to the hospital including but not limited to recurring or worsening of symptoms, chest pain, shortness of breath, lightheadedness, loss of consciousness or near loss of consciousness, or inability to obtain or tolerate medications were discussed with the patient and his . They acknowledged understanding. TIME SPENT: Greater than 60 minutes was spent on discharge of this patient with greater than half the time spent [id number] with the patient. CC: SPENCER Courtney* [id number]/[facility] #: [id number] ADITYA
== END 2016-06-30 13:45 | disposition home or self-care (01) ==
LOC: ED 11:23 → MED 12:58 → MEDTELE 14:28
PROVIDERS: ADMIT Internal Medicine; ATTEND Internal Medicine
DX: I47.1 Supraventricular tachycardia (principal); R07.9 Chest pain, unspecified; R06.02 Shortness of breath; I10 Essential (primary) hypertension; R79.9 Abnormal finding of blood chemistry, unspecified; E11.9 Type 2 diabetes mellitus without complications; Z79.84 Long term (current) use of oral hypoglycemic drugs; N40.0 Benign prostatic hyperplasia without lower urinary tract symptoms; E78.5 Hyperlipidemia, unspecified; E03.9 Hypothyroidism, unspecified; K21.9 Gastro-esophageal reflux disease without esophagitis; G89.29 Other chronic pain; M54.9 Dorsalgia, unspecified; I51.7 Cardiomegaly; R94.31 Abnormal electrocardiogram [ECG] [EKG]; Z79.82 Long term (current) use of aspirin; Z79.899 Other long term (current) drug therapy; Z87.891 Personal history of nicotine dependence
CPT/HCPCS: 36415; 71010; 80048; 80053; 80061; 81003; 81015; 82550; 82553; 83036; 83605; 83690; 83735; 83880; 84443; 84484; 85025; 85379; 85610; 85730; 86140; 93005; 94760; 96361; 96365; 96372; 99284; A9270-GY; G0378; J1644; J1650; J3475

== ENCOUNTER 2020-06-28 21:23 | Observation (INO) ==
[2020-06-28 23:32] LABS: ABS Eosinophils 0.1 10^3/ul (0-0.6); ABS Lymphocytes 0.8 10^3/ul (1.0-4.8); ABS Monocytes 0.5 10^3/ul (0-0.8); ABS Neutrophils 2.3 10^3/ul (1.5-7.7); Eosinophil % 1.4 %; Hematocrit 40 % (42-52); Hemoglobin 13.5 g/dL (14.0-18.0); Lymphocyte % 22.1 %; Mean Corpuscular HGB Conc 33 g/dL (31-36); Mean Corpuscular Hemoglobin 30 pg (27-31); Mean Corpuscular Volume 89 fL (80-94); Mean Platelet Volume 9.3 fL (7.4-10.4); Platelet Count 198 10^3/uL (150-450); Red Blood Count 4.54 10^6 /uL (4.18-5.48); Red Cell Distribution Width 16 % (10-15); White Blood Count 3.7 10^3/uL (3.5-10.8)
[2020-06-28 23:51] LABS: Albumin 3.9 g/dL (3.2-5.2); Albumin/Globulin Ratio 1.3 (1-3); BUN/Creatinine Ratio 18.7 (8-20); C Reactive Protein 63.06 mg/L (<8.01); Calcium 8.5 mg/dL (8.6-10.3); EGFR African American 53.9 (>60); EGFR Non-African American 44.5 (>60); Magnesium 1.4 mg/dL (1.9-2.7); Total Bilirubin 0.4 mg/dL (0.2-1.0); Total Protein 6.9 g/dL (6.4-8.9)
[2020-06-28 23:53] LABS: Urine Appearance Cloudy; Urine Bilirubin 1+ (Negative); Urine Blood Negative (Negative); Urine Color Amber; Urine Glucose Negative (Negative); Urine Ketones Trace (Negative); Urine Nitrite Negative (Negative); Urine Protein 1+(30 mg/dL) (Negative); Urine Specific Gravity 1.028 (1.010-1.030); Urine Urobilinogen Negative (Negative)
[2020-06-28] MEDS ORDERED: Magnesium Sulfate 2 gm BAG 2 GM/50 ML BAG IVPB ONE (23:53)
[2020-06-28] MEDS ORDERED: NS 0.9% 1000 ml BAG 1,000 ML IV ONE (23:53)
[2020-06-29 00:04] LABS: Urine Bacteria 1+ (Absent); Urine Red Blood Cell 1+(3-5/hpf) (Absent); Urine Squamous Epithelial Cell Present (Absent); Urine White Blood Cell 1+(6-10/hpf) (Absent)
[2020-06-29 00:04] LABS: TSH Ultra Thyroid Stim Horm 2.11 mcIU/mL (0.34-5.60)
[2020-06-29] MEDS ORDERED: cefTRIAXone 1 gm/50 mL NS BAG 1 GM/50 ML BAG IV ONE (00:06)
[2020-06-29] MEDS ORDERED: Lactated Ringers 1000 ml BAG 1,000 ML IV ONE (01:21)
[2020-06-29 01:33] LABS: Erythrocyte Sed Rate 40 mm/Hr (0-19)
[2020-06-29 09:55] LABS: ABS Eosinophils 0.1 10^3/ul (0-0.6); ABS Lymphocytes 0.9 10^3/ul (1.0-4.8); ABS Monocytes 0.6 10^3/ul (0-0.8); ABS Neutrophils 2.8 10^3/ul (1.5-7.7); Eosinophil % 2.6 %; Hematocrit 37 % (42-52); Hemoglobin 12.6 g/dL (14.0-18.0); Lymphocyte % 20.5 %; Mean Corpuscular HGB Conc 34 g/dL (31-36); Mean Corpuscular Hemoglobin 30 pg (27-31); Mean Corpuscular Volume 88 fL (80-94); Mean Platelet Volume 9.2 fL (7.4-10.4); Platelet Count 173 10^3/uL (150-450); Red Blood Count 4.23 10^6 /uL (4.18-5.48); Red Cell Distribution Width 15 % (10-15); White Blood Count 4.4 10^3/uL (3.5-10.8)
[2020-06-29] MEDS: Aspirin EC 81 mg TAB.EC (enteric coated) PO SCH (10:05)
[2020-06-29] MEDS: Fluticasone NASAL SPRAY 50MCG 16 gm SPRAY BTL BOTH NARES SCH ×2 (10:07→19:46)
[2020-06-29 10:11] LABS: BUN/Creatinine Ratio 26.3 (8-20); Calcium 8.2 mg/dL (8.6-10.3); EGFR African American 90.4 (>60); EGFR Non-African American 74.7 (>60); Magnesium 1.7 mg/dL (1.9-2.7); Potassium 3.6 mmol/L (3.5-5.0)
[2020-06-29] MEDS: Enoxaparin 40 MG/0.4 ML SYR SUBCUT SCH (10:42)
[2020-06-29] MEDS: NS 0.9% 1000 ml BAG 1,000 ML IV SCH (17:42)
[2020-06-29] MEDS: oxyCODONE/Acetamin 5/325 mg TAB PO PRN (19:47)
[2020-06-29] MEDS ORDERED: cefTRIAXone 1 gm/50 mL NS BAG 1 GM/50 ML BAG IVPB SCH ×2 (22:00)
[2020-06-30] MEDS: NS 0.9% 1000 ml BAG 1,000 ML IV SCH (05:34)
[2020-06-30 06:48] LABS: ABS Eosinophils 0.2 10^3/ul (0-0.6); ABS Monocytes 0.6 10^3/ul (0-0.8); ABS Neutrophils 2.5 10^3/ul (1.5-7.7); Eosinophil % 4.2 %; Hematocrit 34 % (42-52); Hemoglobin 11.7 g/dL (14.0-18.0); Mean Corpuscular HGB Conc 34 g/dL (31-36); Mean Corpuscular Hemoglobin 30 pg (27-31); Mean Corpuscular Volume 88 fL (80-94); Mean Platelet Volume 9.3 fL (7.4-10.4); Platelet Count 169 10^3/uL (150-450); Red Blood Count 3.89 10^6 /uL (4.18-5.48); Red Cell Distribution Width 15 % (10-15); White Blood Count 4.2 10^3/uL (3.5-10.8)
[2020-06-30 07:03] LABS: BUN/Creatinine Ratio 23.9 (8-20); Calcium 8.6 mg/dL (8.6-10.3); EGFR African American 98.4 (>60); EGFR Non-African American 81.3 (>60); Potassium 3.7 mmol/L (3.5-5.0)
[2020-06-30] MEDS: Fluticasone NASAL SPRAY 50MCG 16 gm SPRAY BTL BOTH NARES SCH (08:55)
[2020-06-30] MEDS: Enoxaparin 40 MG/0.4 ML SYR SUBCUT SCH (08:55)
[2020-06-30] MEDS: oxyCODONE/Acetamin 5/325 mg TAB PO PRN (08:56)
[2020-06-30] MEDS: Aspirin EC 81 mg TAB.EC (enteric coated) PO SCH (08:57)
[2020-06-30 16:53] VITALS: BP 156/76
== END 2020-06-30 17:00 | disposition home or self-care (01) ==
LOC: ED 21:23 → MEDTELE 21:23
PROVIDERS: ADMIT Internal Medicine; ATTEND Internal Medicine

== ENCOUNTER 2022-06-24 06:55 | Inpatient (IN) ==
[2022-06-24] MEDS ORDERED: Lactated Ringers 1000 ml BAG 1,000 ML IV ONE (07:19)
[2022-06-24 07:39] LABS: ABS Basophils 0.1 10^3/ul (0-0.2); ABS Eosinophils 0.3 10^3/ul (0-0.6); ABS Lymphocytes 1.3 10^3/ul (1.0-4.8); ABS Monocytes 0.5 10^3/ul (0-0.8); ABS Neutrophils 5.7 10^3/ul (1.5-7.7); Eosinophil % 4.1 %; Hematocrit 42 % (42-52); Hemoglobin 13.7 g/dL (14.0-18.0); Lymphocyte % 16.1 %; Mean Corpuscular HGB Conc 33 g/dL (31-36); Mean Corpuscular Hemoglobin 30 pg (27-31); Mean Corpuscular Volume 91 fL (80-94); Mean Platelet Volume 10.2 fL (7.4-10.4); Platelet Count 196 10^3/uL (150-450); Red Blood Count 4.64 10^6 /uL (4.18-5.48); Red Cell Distribution Width 15 % (10-15); White Blood Count 7.8 10^3/uL (3.5-10.8)
[2022-06-24 08:18] LABS: ALT 10 U/L (7-52); AST 17 U/L (13-39); Albumin 3.9 g/dL (3.2-5.2); Albumin/Globulin Ratio 1.5 (1-3); Alcohol, S < 13 mg/dL (<13); Alkaline Phosphatase 98 U/L (35-149); Anion Gap 11 mmol/L (2-11); Blood Urea Nitrogen 40 mg/dL (6-24); CO2 Carbon Dioxide 23 mmol/L (22-32); Calcium 9.7 mg/dL (8.6-10.3); Chloride 107 mmol/L (101-111); Creatine Kinase 60 U/L (10-223); Globulin 2.6 g/dL (2-4); Glucose 115 mg/dL (70-100); Magnesium 1.4 mg/dL (1.9-2.7); Potassium 4.5 mmol/L (3.5-5.0); Sodium 141 mmol/L (135-145); Total Protein 6.5 g/dL (6.4-8.9); eGFR CKD-EPI 80.9 (>60)
[2022-06-24 08:36] LABS: PCO2 Arterial 43 mmHg (35-45); PO2 Arterial 95 mmHg (80-100)
[2022-06-24] MEDS ORDERED: Magnesium Sulfate 2 gm BAG 2 GM/50 ML BAG IVPB ONE ×2 (08:57→09:42)
[2022-06-24] MEDS ORDERED: NS 0.9% 1000 ml BAG 1,000 ML IV SCH ×2 (11:00→13:17)
[2022-06-24 12:35] LABS: Urine Appearance Clear; Urine Bilirubin Negative (Negative); Urine Blood Negative (Negative); Urine Color Yellow; Urine Glucose Negative (Negative); Urine Ketones Trace (Negative); Urine Nitrite Negative (Negative); Urine Protein Negative (Negative); Urine Specific Gravity 1.021 (1.002-1.030); Urine Urobilinogen Negative (Negative)
[2022-06-24 12:43] LABS: TSH Ultra Thyroid Stim Horm 1.58 mcIU/mL (0.34-5.60)
[2022-06-24 12:54] LABS: Vitamin B12 382 pg/mL (180-914)
[2022-06-24] MEDS: Cholecalciferol (VIT D3) 1,000 unit TAB PO SCH ×2 (12:58→22:32)
[2022-06-24] MEDS ORDERED: oxyCODONE/Acetamin 10/325(NF) TAB PO PRN (13:00)
[2022-06-24] MEDS: Enoxaparin 40 MG/0.4 ML SYR SUBCUT SCH (13:18)
[2022-06-24] MEDS ORDERED: CMC:Carbidopa/Levodopa ODT (NF) 25/100 ODT PO SCH (14:00)
[2022-06-24] MEDS ORDERED: Pantoprazole VIAL 40 MG VIAL IV SCH (14:00)
[2022-06-24] MEDS ORDERED: Carbidopa/Levodop 25/100 MG TAB PO SCH (14:00)
[2022-06-24] MEDS: Levothyroxine 100 MCG/5 ML VIAL IV SCH (14:48)
[2022-06-24] MEDS ORDERED: Dextrose 50% Syringe 50 ml 25 GM/50 ML SYRINGE IV PUSH PRN (15:27)
[2022-06-24] MEDS ORDERED: oxyCODONE/Acetamin 5/325 mg TAB PO PRN (17:53)
[2022-06-24] MEDS: Carbidopa/Levodop 25/100 MG TAB PO SCH (18:34)
[2022-06-24] MEDS: Senna TAB 8.6 mg TAB PO SCH (20:51)
[2022-06-24] MEDS: CARBIDOPA 100 MG PO SCH (20:53)
[2022-06-25 05:59] LABS: ABS Eosinophils 0.2 10^3/ul (0-0.6); ABS Monocytes 0.4 10^3/ul (0-0.8); ABS Neutrophils 6.5 10^3/ul (1.5-7.7); Eosinophil % 2.1 %; Hematocrit 40 % (42-52); Hemoglobin 13.2 g/dL (14.0-18.0); Lymphocyte % 12.5 %; Mean Corpuscular HGB Conc 33 g/dL (31-36); Mean Corpuscular Hemoglobin 30 pg (27-31); Mean Corpuscular Volume 90 fL (80-94); Mean Platelet Volume 10.5 fL (7.4-10.4); Nucleated Red Blood Cells % 0.1; Platelet Count 179 10^3/uL (150-450); Red Blood Count 4.44 10^6 /uL (4.18-5.48); Red Cell Distribution Width 15 % (10-15); White Blood Count 8.1 10^3/uL (3.5-10.8)
[2022-06-25 06:14] LABS: Calcium 9.4 mg/dL (8.6-10.3); Magnesium 1.6 mg/dL (1.9-2.7); Potassium 4.3 mmol/L (3.5-5.0); eGFR CKD-EPI 94.8 (>60)
[2022-06-25] MEDS ORDERED: Magnesium Sulf 4 GM/100 ML IV 4,000 MG/100 ML BAG IVPB ONE (07:36)
[2022-06-25] MEDS: Carbidopa/Levodop 25/100 MG TAB PO SCH ×4 (08:30→18:08)
[2022-06-25] MEDS: Aspirin EC 81 mg TAB.EC (enteric coated) PO SCH ×2 (08:31→10:46)
[2022-06-25] MEDS ORDERED: Ondansetron 4 mg VIAL 2 MG/ML 2 ml VIAL IV PRN (09:07)
[2022-06-25] MEDS: Enoxaparin 40 MG/0.4 ML SYR SUBCUT SCH (09:49)
[2022-06-25] MEDS: Fluticasone NASAL SPRAY 50MCG 16 gm SPRAY BTL INTRANASAL SCH (10:46)
[2022-06-25] MEDS: CARBIDOPA 100 MG PO SCH (20:54)
[2022-06-25] MEDS: Senna TAB 8.6 mg TAB PO SCH (20:58)
[2022-06-26 06:36] LABS: Calcium 9.3 mg/dL (8.6-10.3); Magnesium 1.8 mg/dL (1.9-2.7); Potassium 4.4 mmol/L (3.5-5.0); eGFR CKD-EPI 92.7 (>60)
[2022-06-26] MEDS: Carbidopa/Levodop 25/100 MG TAB PO SCH ×3 (07:40→17:34)
[2022-06-26] MEDS: Aspirin EC 81 mg TAB.EC (enteric coated) PO SCH (07:41)
[2022-06-26] MEDS: Fluticasone NASAL SPRAY 50MCG 16 gm SPRAY BTL INTRANASAL SCH (07:44)
[2022-06-26] MEDS ORDERED: Magnesium Sulfate IV 1GM/100ML 1 GM/100 ML BAG IV ONE (07:59)
[2022-06-26] MEDS: Enoxaparin 40 MG/0.4 ML SYR SUBCUT SCH (11:13)
[2022-06-26] MEDS ORDERED: Magnesium Hydroxide LIQ 30 ML UDC PO ONE (17:37)
[2022-06-26] MEDS: Senna TAB 8.6 mg TAB PO SCH (20:54)
[2022-06-27 06:13] LABS: ABS Basophils 0.1 10^3/ul (0-0.2); ABS Eosinophils 0.3 10^3/ul (0-0.6); ABS Lymphocytes 1.5 10^3/ul (1.0-4.8); ABS Monocytes 0.5 10^3/ul (0-0.8); ABS Neutrophils 5.3 10^3/ul (1.5-7.7); Eosinophil % 3.9 %; Hematocrit 39 % (42-52); Hemoglobin 12.8 g/dL (14.0-18.0); Lymphocyte % 19.4 %; Mean Corpuscular HGB Conc 33 g/dL (31-36); Mean Corpuscular Hemoglobin 30 pg (27-31); Mean Corpuscular Volume 91 fL (80-94); Mean Platelet Volume 10.5 fL (7.4-10.4); Nucleated Red Blood Cells % 0.1; Platelet Count 172 10^3/uL (150-450); Red Blood Count 4.25 10^6 /uL (4.18-5.48); Red Cell Distribution Width 15 % (10-15); White Blood Count 7.7 10^3/uL (3.5-10.8)
[2022-06-27 06:32] LABS: Magnesium 1.6 mg/dL (1.9-2.7); Potassium 4.1 mmol/L (3.5-5.0)
[2022-06-27 06:37] LABS: eGFR CKD-EPI 93.7 (>60)
[2022-06-27] MEDS ORDERED: Magnesium Sulfate 2 gm BAG 2 GM/50 ML BAG IVPB ONE (07:54)
[2022-06-27] MEDS: Enoxaparin 40 MG/0.4 ML SYR SUBCUT SCH (09:33)
[2022-06-27] MEDS: Fluticasone NASAL SPRAY 50MCG 16 gm SPRAY BTL INTRANASAL SCH (09:33)
[2022-06-27] MEDS: Aspirin EC 81 mg TAB.EC (enteric coated) PO SCH (09:35)
[2022-06-27] MEDS: Carbidopa/Levodop 25/100 MG TAB PO SCH ×3 (10:06→16:54)
[2022-06-27] MEDS: Senna TAB 8.6 mg TAB PO SCH (20:25)
[2022-06-28 05:56] LABS: ABS Eosinophils 0.4 10^3/ul (0-0.6); ABS Lymphocytes 1.1 10^3/ul (1.0-4.8); ABS Monocytes 0.5 10^3/ul (0-0.8); ABS Neutrophils 5.6 10^3/ul (1.5-7.7); Eosinophil % 4.7 %; Hematocrit 39 % (42-52); Hemoglobin 12.7 g/dL (14.0-18.0); Lymphocyte % 14.4 %; Mean Corpuscular HGB Conc 32 g/dL (31-36); Mean Corpuscular Hemoglobin 29 pg (27-31); Mean Corpuscular Volume 91 fL (80-94); Mean Platelet Volume 10.3 fL (7.4-10.4); Nucleated Red Blood Cells % 0.1; Platelet Count 174 10^3/uL (150-450); Red Blood Count 4.35 10^6 /uL (4.18-5.48); Red Cell Distribution Width 14 % (10-15); White Blood Count 7.5 10^3/uL (3.5-10.8)
[2022-06-28 06:36] LABS: Calcium 8.9 mg/dL (8.6-10.3); Magnesium 1.5 mg/dL (1.9-2.7); Potassium 4.2 mmol/L (3.5-5.0)
[2022-06-28 06:42] LABS: eGFR CKD-EPI 97.1 (>60)
[2022-06-28] MEDS ORDERED: Magnesium Sulf 4 GM/100 ML IV 4,000 MG/100 ML BAG IVPB ONE (08:00)
[2022-06-28] MEDS: Aspirin EC 81 mg TAB.EC (enteric coated) PO SCH (08:12)
[2022-06-28] MEDS: Fluticasone NASAL SPRAY 50MCG 16 gm SPRAY BTL INTRANASAL SCH (08:13)
[2022-06-28] MEDS: Carbidopa/Levodop 25/100 MG TAB PO SCH ×3 (08:16→17:12)
[2022-06-28] MEDS: Enoxaparin 40 MG/0.4 ML SYR SUBCUT SCH (12:08)
[2022-06-28] MEDS: Senna TAB 8.6 mg TAB PO SCH (20:41)
[2022-06-29] MEDS ORDERED: Magnesium Sulfate 2 gm BAG 2 GM/50 ML BAG IVPB ONE (07:20)
[2022-06-29] MEDS: Aspirin EC 81 mg TAB.EC (enteric coated) PO SCH (09:09)
[2022-06-29] MEDS: Carbidopa/Levodop 25/100 MG TAB PO SCH ×3 (09:09→17:03)
[2022-06-29] MEDS: Fluticasone NASAL SPRAY 50MCG 16 gm SPRAY BTL INTRANASAL SCH (09:11)
[2022-06-29] MEDS: Enoxaparin 40 MG/0.4 ML SYR SUBCUT SCH (11:49)
[2022-06-29 16:41] LABS: Rapid COVID-19 Molecular Undetected (Undetected)
[2022-06-29] MEDS: Senna TAB 8.6 mg TAB PO SCH (20:36)
[2022-06-30 06:19] VITALS: BP 139/79
[2022-06-30] MEDS: Aspirin EC 81 mg TAB.EC (enteric coated) PO SCH (07:44)
[2022-06-30] MEDS: Fluticasone NASAL SPRAY 50MCG 16 gm SPRAY BTL INTRANASAL SCH (07:45)
[2022-06-30] MEDS: Carbidopa/Levodop 25/100 MG TAB PO SCH (07:45)
== END 2022-06-30 11:15 | DRG 91 ==
LOC: ED 06:55 → EDHOLD 06:55 → SUATTDRO 10:16 → EDHOLD 13:32 → MED 14:45
PROVIDERS: ADMIT Hospitalist; ATTEND Internal Medicine